=== PATIENT | female | born 1995 | race Caucasian/White ===

== ENCOUNTER 2021-06-23 08:01 | Emergency (ER) | payer MEDICAID, OTHER ==
[~2021-06-23] VITALS: Ht 162.5 cm; Wt 57.0 kg
[~2021-06-23 08:01] MED LIST: DCS100C PO; DOCU100C37 PO; IBP800T PO; IBUP-1780 PO; MULT-228 PO; OXYC-556 PO; OXYC1TAB12 PO; PREN1TAB25 PO
[2021-06-23] MEDS ORDERED: KETOROLAC 30 MG/ML VIAL IVP STA (08:07)
[2021-06-23] MEDS ORDERED: ORPHENADRINE 60 MG/2 ML (NORFLEX) AMP (ED ONLY) IM STA (08:07)
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
[2021-06-23 08:21] LABS: BASOPHILS % (AUTO) 0 % (0-10); EOSINOPHILS # (AUTO) 0.2 10^3/uL (0.0-0.3); EOSINOPHILS % (AUTO) 2 % (0-10); HEMATOCRIT 36 % (35-52); HEMOGLOBIN 12.1 g/dL (11.5-16.0); LYMPHOCYTES # (AUTO) 1.9 X 10^3 (1.0-4.0); LYMPHOCYTES % (AUTO) 15 % (12-44); MEAN CORPUSCULAR HEMOGLOBIN 32 pg (25-34); MEAN CORPUSCULAR HGB CONC 34 g/dL (32-36); MEAN CORPUSCULAR VOLUME 95 fL (80-99); MEAN PLATELET VOLUME 9.4 fL (9.0-12.2); MONOCYTES # (AUTO) 0.7 X 10^3 (0.0-1.0); MONOCYTES % (AUTO) 5 % (0-12); NEUTROPHILS # (AUTO) 9.8 X 10^3 (1.8-7.8); NEUTROPHILS % (AUTO) 77 % (42-75); PLATELET COUNT 314 10^3/uL (130-400); WHITE BLOOD COUNT 12.7 10^3/uL (4.3-11.0)
[2021-06-23 08:27] LABS: BILIRUBIN,URINE BEG (NEGATIVE); CLARITY,URINE SLUGHTLY CLOUDY; COLOR,URINE YELLOW; GLUCOSE, URINE (UA) NEGATIVE (NEGATIVE); KETONES,URINE NEGATIVE (NEGATIVE); LEUKOCYTE ESTERASE ,URINE NEGATIVE (NEGATIVE); NITRITE,URINE NEGATIVE (NEGATIVE); PROTEIN,URINE 2+ (NEGATIVE); RBC,URINE 25-50 /HPF
[2021-06-23 08:28] LABS: BACTERIA,URINE FEW /HPF; SQUAMOUS EPITHELIAL CELL,UR 25-50 /HPF
[2021-06-23 08:33] LABS: ALBUMIN 4.1 GM/DL (3.2-4.5); BILIRUBIN,TOTAL 0.2 MG/DL (0.1-1.0); CALCIUM 9.7 MG/DL (8.5-10.1); CREATININE SERUM 0.73 MG/DL (0.60-1.30); POTASSIUM 4.2 MMOL/L (3.6-5.0)
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
[2021-06-23] MEDS ORDERED: fentaNYL INJ 100 MCG/2 ML AMP IVP ONE (09:45)
[2021-06-23] MEDS ORDERED: NS IV 1000 ML 1,000 ML IV STA (11:22)
[2021-06-23 13:40] VITALS: BP 111/96
== END 2021-06-23 13:40 | disposition short-term general hospital (02) ==
LOC: ER FS 08:01 → EDUNIT# 08:01 → ER FS 13:40
DX: S32.031A Stable burst fracture of third lumbar vertebra, initial encounter for closed fracture (principal); S80.812A Abrasion, left lower leg, initial encounter; S80.811A Abrasion, right lower leg, initial encounter; V89.2XXA Person injured in unspecified motor-vehicle accident, traffic, initial encounter
CPT/HCPCS: 36415; 72125; 72128; 72131; 80053; 81000; 84703; 85025; 99291

== ENCOUNTER 2023-10-05 19:46 | Emergency (ER) | payer SELFPAY ==
[~2023-10-05] VITALS: Ht 162.5 cm; Wt 53.6 kg
[2023-10-05] MEDS ORDERED: ACHD5005 PO (20:24)
[2023-10-05] MEDS ORDERED: SULF1TAB38 PO (20:24)
--- NOTE | 2023-10-05 20:24 | ED Integumentary General ---
"General Chief Complaint: Abscess Stated Complaint: LEFT LEG|PAIN Source: patient Exam Limitations: no limitations History of Present Illness Date Seen by Provider: Oct 05, 2023 Time Seen by Provider: 19:50 Initial Comments 28-year-old female presents to the ER complaining of an abscess on her left outer thigh. She reports she has had a sore there for 1 year and over the past 24 hours the area has gotten swollen, painful, red. No fever or chills reported. No history of resistant infections. Allergies and Home Medications Allergies Coded Allergies: No Known Drug Allergies (Unverified , 02/17/15) Patient Home Medication List Home Medication List Reviewed: Yes No Active Prescriptions or Reported Meds Review of Systems Review of Systems Constitutional: see HPI (All other systems negative except as documented in HPI.) Past Etsrsuq-Tzmnda-Yukzxu Hx Immunizations Up To Date Tetanus Booster (TDap): Less than 5yrs PED Vaccines UTD: Yes Seasonal Allergies Seasonal Allergies: No Past Medical History Surgery/Hospitalization HX: Tubal ligation Reproductive Disorders: No Female Reproductive Disorders: Denies Sexually Transmitted Disease: No HIV/AIDS: No Anxiety Adverse Reaction/Blood Tranf: No Family Medical History Psychosocial problem G8 BROTHER (bipolar, add, schizophrenic) Thyroid disease G8 BROTHER No Family History of: AIDS Abdominal aortic aneurysm Clovis's disease Alcoholism Alzheimer's disease Aphasia Arthritis Asthma Cancer of mouth Cardiovascular disease Cataracts Colon cancer Completed stroke Congenital disease Congenital heart disease Coronary thrombosis Cystic fibrosis Deafness or hearing loss Dementia Diabetes mellitus Drug abuse Dysphasia Fibrocystic disease of breast Gastroenteritis Glaucoma Headache disorder Hypercholesterolemia Hypertension Infertility Kidney disease Myocardial infarction Neoplasm Not obtainable due to adoption Osteoporosis Parkinson's disease Prostate cancer Respiratory disorder Seizure disorder Severe allergy Tuberculosis Visual disorder Physical Exam Vital Signs Capillary Refill : General Appearance: WD/WN, no apparent distress HEENT: PERRL/EOMI, normal ENT inspection, TMs normal, pharynx normal Neck: non-tender, full range of motion, supple, normal inspection Cardiovascular: normal peripheral pulses, regular rate, rhythm, no edema, no gallop, no JVD, no murmur Respiratory: chest non-tender, lungs clear, normal breath sounds, no respiratory distress, no accessory muscle use Gastrointestinal: normal bowel sounds, non tender, soft, no organomegaly, no pulsatile mass Back: normal inspection, no CVA tenderness, no vertebral tenderness Extremities: normal range of motion, non-tender, no pedal edema, no calf tenderness, normal capillary refill, pelvis stable Neurologic/Psychiatric: 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, no motor/sensory deficits, alert, normal mood/affect, oriented x 3, EOM palsy, depressed affect Skin: normal color, warm/dry, other (There is a large abscess on the left lateral proximal thigh region that is approximately 3 cm x 3 cm in diameter with surrounding erythema and induration.) Lymphatic: no adenopathy Procedures/Interventions I&D : Site: Left lateral thigh Blade Size: 11 I & D Procedure: betadine prep, sterile dressing applied, Wound Packing Packing/Drain: Idoform 10/30 Progress/Results/Core Measures Results/Orders My Orders Orders - SYDNEY MCCRACKEN DO Sulfamethoxazole/Tmp Ds Tablet (Sulfamet (10/05/23 20:30) Hydrocodone/Apap 5/325 Tablet (Hydrocod (10/05/23 20:30) Dipht/Pertuss(Acell)/Tet Adult (Dipht/Pe (10/05/23 20:30) Lidocaine 2% W/Epi 1:100,000 (Xylocaine/ (10/05/23 20:30) Body Fluid Culture (10/05/23 20:16) Progress Progress Note : Progress Note Incision and drainage of left lateral thigh abscess. See procedure note. Start Bactrim twice daily for 10 days and [place] for pain. Follow-up in clinic in 24 to 40 hours for recheck and repacking if possible. Departure Impression Primary Impression: Abscess of left thigh Disposition: 01 HOME, SELF-CARE Condition: Stable Departure-Patient Inst. Decision time for Depature: 20:21 Referrals: [facility] [place] [facility] [place] [facility] [place] [facility] [place] Patient Instructions: Abscess Incision and Drainage ED Add. Discharge Instructions: Leave the packing in place for 24 to 48 hours and then remove. After removal you are going to want to wash the area 1-2 times daily gently with soap and water, dry thoroughly, apply thin layer of antibiotic ointment and then keep covered with a bandage. It would be beneficial if you could follow-up with a physician in the next 24 to 48 hours so they can reevaluate and repack if they believe it needs to be repacked. Scripts Hydrocodone/Acetaminophen (Hydrocodone-Acetamin 5-325 mg) 5 Mg-325 Mg Tablet 1 TAB PO Q6H PRN for PAIN-MODERATE (5-7) for 3 Days, #12 TAB Prov: SYDNEY MCCRACKEN DO 10/05/23 Sulfamethoxazole/Trimethoprim (Bactrim Ds Tablet) 1 Each Tablet 1 EACH PO BID for 10 Days, #20 TAB Prov: SYDNEY MCCRACKEN DO 10/05/23 SYDNEY MCCRACKEN DO Oct 05, 2023 20:24"
[2023-10-05] MEDS ORDERED: Sulfamethoxazole/Trimethoprim DS TABLET PO ONE (20:30)
[2023-10-05] MEDS ORDERED: LIDOCAINE 2% w/EPI 1:100,000 20 ML VIAL INJ ONE (20:30)
[2023-10-05] MEDS ORDERED: HYDROcodone/ACETAMINOPHEN 5 MG/325 MG TABLET PO ONE (20:30)
[2023-10-05] MEDS ORDERED: Tetanus/Diphtheria/Pertussis (Acell) ADULT Vaccine 0.5 ML IM ONE (20:30)
[2023-10-05 20:33] VITALS: BP 134/91
== END 2023-10-05 20:33 | disposition home or self-care (01) ==
LOC: EDUNIT# 19:46 → ER FS 19:49
DX: L02.416 Cutaneous abscess of left lower limb (principal); Z23 Encounter for immunization
CPT/HCPCS: 10061; 87070; 87205; 90715